=== PATIENT | male | born 1990 | race Caucasian/White ===

== ENCOUNTER 2016-09-15 10:40 | Emergency (ER) | payer OTHER ==
[2016-09-15 11:18] LABS: ABSOLUTE BASOPHIL COUNT 0 /CUMM (0.0-0.2); ABSOLUTE EOSINOPHIL COUNT 0.1 /CUMM (0.0-0.7); ABSOLUTE GRANULOCYTE CT 4.4 /CUMM (1.4-6.5); ABSOLUTE LYMPH COUNT 2.7 /CUMM (1.2-3.4); ABSOLUTE MONOCYTE COUNT 0.6 /CUMM (0.10-0.60); BASOPHIL % 0.4 % (0.0-2.0); EOSINOPHIL % 1.4 % (0-5); GRANULOCYTE % 56.3 % (42.2-75.2); HEMATOCRIT 46.2 % (42-52); MEAN CORPUSCULAR HGB 28.4 PG (27.0-31.0); MEAN CORPUSCULAR HGB CONC 33.3 G/DL (33.0-37.0); MEAN PLATELET VOLUME 7.4 FL (7.4-10.4); PLATELET COUNT 262 /CUMM (130-400); RBC DISTRIBUTION WIDTH 12.9 % (11.5-14.5); RED BLOOD CELL CT 5.43 /CUMM (4.70-6.10); WHITE BLOOD CELL COUNT 7.8 /CUMM (4.8-10.8)
--- NOTE | 2016-09-15 11:37 | ED GI/GU/ABDOMINAL COMPLAINT ---
History of Present Illness General Chief Complaint: Abdominal Pain/Flank Pain Stated Complaint: ABD PAIN SINCE YEST MORNING Source: patient Exam Limitations: no limitations Vital Signs & Intake/Output Vital Signs & Intake/Output Vital Signs Date Time Temp Pulse Resp B/P Pulse O2 O2 Flow FiO2 Ox Delivery Rate 09/15 1230 98.0 70 20 120/80 98 Room Air 09/15 1101 97.7 68 20 118/73 97 Room Air Allergies Coded Allergies: MDX - Amoxicillin (AMOXICILLIN) (Severe, SWELLING 12/17/13) Reconcile Medications Omeprazole Magnesium (Prilosec Otc) 20 MG TABLET.DR 1 TAB PO DAILY PUD Triage Note: PER PT RT UPPER ABD PAIN, FEELING BLOATED X 24 HRS, PER PT ON SOUP ONLY D/T HAVING WISDOM TEETH EXTRACTED TUESDAY Triage Nurses Notes Reviewed? yes Onset: Gradual Duration: constant Timing: recent history Severity Numbers: 5 Location: epigastric Radiation: no radiation Activities at Onset: none Prior Abdominal Problems: none HPI: Patient is a 26-year-old male with an unremarkable past medical history presents to emergency room with a 24-hour history of gradual onset of epigastric discomfort and bloating sensation. Last bowel movement was yesterday no blood no melena noted. Patient does state that he recently had a dental extraction which was complaining of a 2 week history of dental pain in which she was prescribed ibuprofen which she has been taking for the past 2 weeks this was discontinued yesterday. Patient was taken this with food. Patient denies any nausea or vomiting and can tolerate by mouth denies any change in symptoms with by mouth intake. Denies any fever chills. Denies any significant alcohol intake (ISAEL ALLEN) Past History Travel History Traveled to [place] past 21 day No Medical History Any Pertinent Medical History? none Neurological: NONE EENT: NONE Cardiovascular: NONE Respiratory: NONE Gastrointestinal: NONE Hepatic: NONE Renal: NONE Musculoskeletal: NONE Psychiatric: NONE Endocrine: NONE Surgical History Surgical History: non-contributory Psychosocial History What is your primary language Icelandic Tobacco Use: Current Daily Use Daily Tobacco Use Amount/Type: => 5 Cigarettes daily Family History Hx Contributory? No (ISAEL ALLEN) Review of Systems Review of Systems Constitutional: Reports: no symptoms. EENTM: Reports: no symptoms. Respiratory: Reports: no symptoms. Cardiovascular: Reports: no symptoms. GI: Reports: see HPI, abdominal pain. Genitourinary: Reports: no symptoms. Musculoskeletal: Reports: no symptoms. Skin: Reports: no symptoms. Neurological/Psychological: Reports: no symptoms. Hematologic/Endocrine: Reports: no symptoms. Immunologic/Allergic: Reports: no symptoms. All Other Systems: Reviewed and Negative (ISAEL ALLEN) Physical Exam Physical Exam General Appearance: no apparent distress, alert, comfortable Gastrointestinal: normal bowel sounds, soft, MILD EPIGASTRIC AND RIGHT UPPER QUADRANT POINT TENDERNESS NO REBOUND TENDERNESS NO RIGHT LOWER QUADRANT TENDERNESS Comments: Well-developed well-nourished person in no acute distress HEENT: Normal EENT exam, extraocular motion intact, no nystagmus. Pupils equally round and reactive to light and accommodation. Nose is atraumatic. External auditory canal and Tympanic membranes clear. Pharynx normal. No swelling or edema. Neck: Supple, no lymphadenopathy, normal range of motion without pain or tenderness Back: Nontender, no CVA tenderness. Cardiovascular: Regular rate and rhythms no murmurs rubs or gallops, normal JVP Respiratory: Chest nontender. No respiratory distress.breath sounds clear to auscultation bilaterally Extremity: No edema, no calf tenderness to palpation, normal and equal pulses. Neuro: Alert oriented x3, motor sensory normal, Skin: No appreciable rash on exposed skin, skin is warm and dry. Psych: Mood and affect is normal, memory and judgment is normal. Core Measures ACS in differential dx? No Severe Sepsis Present: No Septic Shock Present: No (ISAEL ALLEN) Progress Differential Diagnosis: AAA, AMI, appendicitis, biliary colic, bowel obstruction , cholecystitis, diverticulitis, epididymitis, esophageal varices, gastritis, hepatitis, hernia, hemorrhoids, ischemic bowel, inflamm bowel dis, Mandy-Dago tear, orchitis, pancreatitis, prostatitis, peptic ulcer, PUD/GERD, perforated viscous, pyelonephritis, SBO, testicular torsion, ureterolithiasis, urinary retention, urethritis, UTI/pyelo Plan of Care: Orders Procedure Date/time Status LIPASE 09/15 1107 Complete LACTIC ACID 09/15 1107 Complete COMPREHENSIVE METABOLIC PANEL 09/15 1107 Complete CBC WITHOUT DIFFERENTIAL 09/15 1107 Complete AMYLASE 09/15 1107 Complete Laboratory Tests 09/15/16 1110: Anion Gap 13, Estimated GFR > 60, BUN/Creatinine Ratio 11.0, Glucose 96, Lactic Acid 0.8, Calcium 10.4 H, Total Bilirubin 1.1, AST 35, ALT 64, Alkaline Phosphatase 49, Total Protein 7.8, Albumin 4.8, Globulin 3.0, Albumin/Globulin Ratio 1.6, Amylase 58, Lipase 76, CBC w Diff NO MAN DIFF REQ, RBC 5.43, MCV 85.0 , MCH 28.4, RDW 12.9, MPV 7.4, Gran % 56.3, Lymphocytes % 34.3, Monocytes % 7.6, Eosinophils % 1.4, Basophils % 0.4, Absolute Granulocytes 4.4, Absolute Lymphocytes 2.7, Absolute Monocytes 0.6, Absolute Eosinophils 0.1, Absolute Basophils 0, PUBS MCHC 33.3 Patient currently is in no apparent distress. Due to history of present illness and exam findings I suspect patient had peptic ulcer disease. Patient has no right lower quadrant pain. Patient was strongly advised to avoid NSAIDs and Tylenol for pain. And to follow up with GI if symptoms persist in 1 week. Patient had unremarkable blood work afebrile nontoxic-appearing (ISAEL ALLEN) Initial ED EKG: none (ISAEL ALLEN) Departure Departure Disposition: HOME OR SELF CARE Condition: Stable Clinical Impression Primary Impression: Epigastric pain Secondary Impressions: PUD (peptic ulcer disease) Referrals: PETE MORAES,TAI LANZA MD,ANDREW (PCP/Family) Additional Instructions: As discussed please avoid NSAID such as ibuprofen and Advil or Aleve as this may worsen your symptoms. Begin a 24-hour clear liquid and bland diet to rest your bowels. Begin the prescription of Prilosec tomorrow as you've received this medication in the emergency room as directed for the full course. This prescription is waiting at [facility]. If no better in one week follow-up with press officer Dr. FREEMAN for further evaluation treatment. If symptoms worsen return to emergency room Departure Forms: Customer Survey General Discharge Information Prescriptions: Current Visit Scripts Omeprazole Magnesium (Prilosec Otc) 1 TAB PO DAILY #20 TAB (ISAEL ALLEN) PA/MASTIC MAN Co-Sign Statement Statement: ED Attending supervision documentation- [] I saw and evaluated the patient. I have also reviewed all the pertinent lab results and diagnostic results. I agree with the findings and the plan of care as documented in the PA's/MASTIC MAN's documentation. x I have reviewed the ED Record and agree with the PA's/MASTIC MAN's documentation. [] Additions or exceptions (if any) to the PAs/MASTIC MAN's note and plan are summarized below: [] (LEAH MORAES,KATHI)
[2016-09-15] MEDS ORDERED: PRILOSEC OTC20 M1 PO (12:24)
[2016-09-15 12:30] VITALS: BP 120/80
== END 2016-09-15 12:30 ==
LOC: ERH 10:40
PROVIDERS: Emergency Medicine
DX: K27.9 Peptic ulcer, site unspecified, unspecified as acute or chronic, without hemorrhage or perforation (principal)